=== PATIENT | female | born 1995 ===

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

== ENCOUNTER 2017-05-12 18:05 | Emergency (ER) | payer MEDICAID ==
[2017-05-12 18:05] VITALS: BMI 28.2
[2017-05-12 19:17] VITALS: O2SAT 100
--- NOTE | 2017-05-12 21:35 | ED PDOC ---
HPI: Abdomen Time Seen by Provider: 05/12/17 21:05 Chief Complaint (Nursing): Abdominal Pain Chief Complaint (Provider): abdominal pain History Per: Patient History/Exam Limitations: no limitations Onset/Duration Of Symptoms: Days (2), Waxing/Waning Current Symptoms Are (Timing): Still Present Location Of Pain/Discomfort: Diffuse Associated Symptoms: Back Pain Additional Complaint(s): 21 y/o female presents with diffuse abdominal pain x 2 days. Associated 3 episodes of nonbloody diarrhea, and low back pain. Denies fever, nausea/ vomiting, chest pain, cough, congestion, shortness of breath, palpitations, recent travel, urinary symptoms. Abnormal Vaginal Bleeding: No Past Medical History Reviewed: Historical Data, Nursing Documentation, Vital Signs Vital Signs: Last Vital Signs Temp 98.4 F 05/12/17 19:13 Pulse 73 05/12/17 19:13 Resp 16 05/12/17 19:13 BP 117/67 05/12/17 19:13 Pulse Ox 100 05/12/17 21:34 - Medical History PMH: Asthma - Surgical History Surgical History: No Surg Hx - Family History Family History: States: Unknown Family Hx - Immunization History Hx Tetanus Toxoid Vaccination: Yes Hx Influenza Vaccination: Yes Hx Pneumococcal Vaccination: No - Home Medications Home Medications: Ambulatory Orders Medication Instructions Recorded Ibuprofen [Motrin] 600 mg PO Q8 PRN #21 tab 12/04/15 Famotidine [Pepcid] 20 mg PO DAILY #20 tab 06/24/16 Ciclopirox 0.77% [Loprox 0.77%] 30 gm EXT BID #1 tube 10/06/16 Ibuprofen [Motrin Tab] 600 mg PO Q6 #30 tab 10/06/16 Dicyclomine [Bentyl] 20 mg PO TID PRN #15 tab 05/13/17 - Allergies Allergies/Adverse Reactions: Allergies Allergy/AdvReac Type Severity Reaction Status Date / Time No Known Allergies Allergy Verified 06/24/16 10:58 Review of Systems ROS Statement: Except As Marked, All Systems Reviewed And Found Negative Gastrointestinal: Positive for: Abdominal Pain, Diarrhea Physical Exam - Reviewed Nursing Documentation Reviewed: Yes Vital Signs Reviewed: Yes - Physical Exam Appears: Positive for: Well, Non-toxic, No Acute Distress Head Exam: Positive for: ATRAUMATIC, NORMAL INSPECTION, NORMOCEPHALIC Skin: Positive for: Normal Color Eye Exam: Positive for: Normal appearance ENT: Positive for: Normal ENT Inspection Cardiovascular/Chest: Positive for: Regular Rate, Rhythm Respiratory: Positive for: Normal Breath Sounds Gastrointestinal/Abdominal: Positive for: Bowel Sounds, Soft, Tenderness ( diffuse discomfort) Back: Positive for: Normal Inspection Extremity: Positive for: Normal ROM Neurologic/Psych: Positive for: Alert, Oriented - Laboratory Results Result Diagrams: 05/12/17 22:35 05/12/17 22:35 - ECG O2 Sat by Pulse Oximetry: 100 - Progress ED Course And Treament: labs, urine, IV fluids, PO bentyl On re-eval, patient resting comfortably; states pain improved. Patient educated on findings, discharged with rx Bentyl. Advised fluids, BRAT diet. Follow up PMD 2-3 days. Return precautions given. Disposition - Clinical Impression Clinical Impression: Gastroenteritis - Patient ED Disposition Is Patient to be Admitted: No Counseled Patient/Family Regarding: Studies Performed, Diagnosis, Need For Followup, Rx Given - Disposition Disposition: Routine/Home Disposition Time: 00:25 Condition: IMPROVED Prescriptions: Dicyclomine [Bentyl] 20 mg PO TID PRN #15 tab PRN Reason: Pain, Mild (1-3) Instructions: Gastroenteritis (ED) Forms: [employer] (Spanish)
[2017-05-12] MEDS: Sodium Chloride 0.9% 1,000 ML IV STA (22:26)
[2017-05-12 22:37] LABS: BASO % 0.4 % (0.0-2.0); EOS # 0.2 K/uL (0.0-0.7); EOS % 2.5 % (0.0-4.0); LYMPH # 3.3 K/uL (1.0-4.3); LYMPH % 37.2 % (20.0-40.0); MEAN CELL VOLUME 89.4 fl (81.0-99.0); MEAN CORPUSCULAR HEMOGLOBIN 30.2 pg (27.0-31.0); MEAN CORPUSCULAR HGB CONC 33.7 g/dL (33.0-37.0); MEAN PLATELET VOLUME 8.2 fl (7.2-11.7); MONO # 0.6 K/uL (0.0-0.8); MONO % 7.1 % (0.0-10.0); NEUT # 4.7 K/uL (1.8-7.0); NEUT % 52.8 % (50.0-75.0); NRBC % 0.1 % (0.0-0.0); RBC 3.96 Mil/uL (3.80-5.20); RED CELL DISTRIBUTION WIDTH 12.8 % (11.5-14.5); WHITE BLOOD COUNT 8.9 K/uL (4.8-10.8)
[2017-05-12 22:56] LABS: ALB/GLOB RATIO 1.2 (1.0-2.1); ALBUMIN 4.3 g/dL (3.5-5.0); ALT/SGPT 29 U/L (9-52); AST/SGOT 19 U/L (14-36); BLOOD UREA NITROGEN 9 mg/dl (7-17); CALCIUM 9.6 mg/dL (8.4-10.2); GFR AFRICAN-AMERICAN > 60; GFR NON-AFRICAN AMERICAN > 60; LIPASE 99 U/L (23-300)
[2017-05-12 23:59] LABS: SQUAMOUS EPITHIAL 7 /hpf (0-5); URINE BILIRUBIN NEGATIVE (NEGATIVE); URINE BLOOD NEGATIVE (NEGATIVE); URINE CALCIUM OXALATE CRYSTALS OCC /hpf (<OCC); URINE CLARITY CLOUDY (Clear); URINE COLOR YELLOW (YELLOW); URINE GLUCOSE (UA) NEG (Normal); URINE LEUKOCYTE ESTERASE NEG Leu/uL (Negative); URINE PROTEIN NEGATIVE (NEGATIVE); URINE UROBILINOGEN 0.2-1.0 mg/dL (0.2-1.0)
[2017-05-13 00:32] VITALS: BP 118/70; PULSE 67; RESP 18; TEMP 97.3
== END 2017-05-13 00:35 | disposition home or self-care (01) ==
LOC: H.ER 18:05
DX: K52.9 Noninfective gastroenteritis and colitis, unspecified (principal); J45.909 Unspecified asthma, uncomplicated
CPT/HCPCS: 80053; 81003; 81025; 83690; 85025; 96374; 99284; J1885; J7040

== ENCOUNTER 2017-10-07 19:18 | Emergency (ER) | payer MEDICAID ==
[2017-10-07 19:18] VITALS: BMI 28.2
[2017-10-07 19:24] VITALS: BP 124/79; PULSE 68; RESP 16; TEMP 98.8; O2SAT 99
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
== END 2017-10-07 22:30 | disposition home or self-care (01) ==
LOC: H.ER 19:18
DX: S09.90XA Unspecified injury of head, initial encounter (principal); M54.2 Cervicalgia; M54.5 Low back pain; V43.62XA Car passenger injured in collision with other type car in traffic accident, initial encounter; Y92.410 Unspecified street and highway as the place of occurrence of the external cause